=== PATIENT | female | born 2000 | race Caucasian/White ===

== ENCOUNTER 2021-08-21 08:35 | Inpatient (IN) | payer OTHER ==
[2021-08-21 09:11] VITALS: BMI 28.9
[2021-08-21] MEDS ORDERED: hydrALAZINE 20 MG/ML VIAL SLOW IVP PRN ×2 (09:53→09:59)
[2021-08-21] MEDS ORDERED: Famotidine/PF 20 mg/2ml Vial SLOW IVP PRN (09:59)
[2021-08-21] MEDS ORDERED: Butorphanol Tartrate 1 MG/ML VIAL SLOW IVP PRN (09:59)
[2021-08-21] MEDS ORDERED: Bicitra 30 ML UDCUP PO PRN (09:59)
[2021-08-21] MEDS ORDERED: Ondansetron PF 4 MG/2 ML Vial IVP PRN ×2 (09:59→17:09)
[2021-08-21] MEDS ORDERED: Promethazine HCl 25 MG/ML VIAL IM PRN ×2 (09:59→17:09)
[2021-08-21] MEDS ORDERED: Lactated Ringer's 1,000 ML IV SCH ×2 (10:00)
[2021-08-21] MEDS ORDERED: CEFAZOLIN 2 GM in Premix Bag 1 BAG IVPB SCH (10:00)
[2021-08-21 10:41] LABS: Hemoglobin 12.4 g/dL (12.0-15.5); Mean Corpuscular HGB CONC 33.7 g/dL (32.0-36.0); Mean Corpuscular Hemoglobin 27.7 pg (27.0-33.0); Mean Corpuscular Volume 82.3 fl (81.6-98.3); Mean Platelet Volume 11.7 fl (7.4-10.4); Platelet Count 277 10x3/uL (150-450); RBC Distribution Width 12.8 % (11.5-14.5); Red Blood Cell (RBC) Count 4.47 10x6/uL (3.90-5.03); White Blood Cell (WBC) Count 15.8 10x3/uL (3.5-10.5)
[2021-08-21] MEDS ORDERED: Ondansetron PF 4 MG/2 ML Vial ONE (11:02)
[2021-08-21] MEDS ORDERED: Dexamethasone 4 mg/ml Vial ONE (11:02)
[2021-08-21] MEDS ORDERED: Oxytocin 10 UNITS/ML VIAL ONE (11:02)
[2021-08-21] MEDS ORDERED: Morphine PF 10 MG/10 ML VIAL ONE (11:02)
[2021-08-21] MEDS ORDERED: PHENYLEPHRINE-NS 100 MCG/ML 10 ML SYRINGE ONE (11:02)
[2021-08-21 11:12] LABS: Hep B Surf Ag Non-Reactive S/CO (NonReactive); Syphilis Antibody Nonreactive (Nonreactive); Syphilis Antibody Index 0.06 S/CO (<1.00 Non-Reactive)
[2021-08-21] MEDS ORDERED: Lidocaine 1% (PF) 30 ML VIAL ONE (11:18)
[2021-08-21 11:19] LABS: HBSAg Index 0.22 S/CO (0-0.99)
[2021-08-21 12:35] LABS: SARS-CoV-2 NAA Rapid Test Not Detected (NotDetected)
[2021-08-21] MEDS ORDERED: Misoprostol 200 MCG TAB PR PRN (12:48)
[2021-08-21] MEDS ORDERED: Boostrix 0.5 ML (Tdap) VIAL IM ONE (12:48)
[2021-08-21] MEDS ORDERED: Simethicone Chewable 80 MG TAB PO PRN (12:48)
[2021-08-21] MEDS ORDERED: Methylergonovine 0.2 MG/ML VIAL IM PRN (12:48)
[2021-08-21] MEDS ORDERED: Measles/Mumps/Rubella 10 MCG/0.5 ML VIAL SC ONE (12:48)
[2021-08-21] MEDS ORDERED: Acetaminophen/Codeine 30-300mg Tablet PO PRN (12:48)
[2021-08-21] MEDS ORDERED: Lanolin Ointment 7 GM TUBE TOP PRN (12:48)
[2021-08-21] MEDS ORDERED: Varicella virus, LIVE 0.5 ML VIAL SC ONE (12:48)
[2021-08-21] MEDS ORDERED: HYDROcodone/Acetaminophen 5/325 mg Tablet PO PRN ×2 (12:48)
[2021-08-21] MEDS ORDERED: Bisacodyl 10 MG SUPP PR PRN (12:48)
[2021-08-21] MEDS ORDERED: NS w/ Oxytocin 30 units 500 ML IV SCH (13:00)
[2021-08-21 13:32] LABS: RapidComm Collect By CBN
[2021-08-21 13:33] LABS: RapidComm Collect By CBN; pH (Cord, venous) 7.275 (7.250-7.350)
[2021-08-21] MEDS ORDERED: Ibuprofen 800 MG TAB PO SCH (14:00)
[2021-08-21] MEDS ORDERED: Meperidine HCl/PF 25 MG/ML VIAL SLOW IVP PRN (17:09)
[2021-08-21] MEDS ORDERED: Hydrocerin (Eucerin) Cream 120 gm Jar TOP PRN (17:09)
[2021-08-21] MEDS ORDERED: Fentanyl 100 MCG/2 ML VIAL SLOW IVP PRN (17:09)
[2021-08-21] MEDS ORDERED: Naloxone HCl 0.4 mg/ml Vial IVP PRN ×2 (17:09)
[2021-08-21] MEDS ORDERED: Ondansetron HCl/PF 4 MG/2 ML Vial IVP PRN (17:09)
[2021-08-21] MEDS ORDERED: Ketorolac Tromethamine 30 MG/ML VIAL IVP PRN (17:09)
[2021-08-21] MEDS ORDERED: Promethazine HCl 25 MG SUPP PR PRN (17:09)
[2021-08-21] MEDS ORDERED: Naloxone HCl 0.4 mg/ml Vial IV PRN (17:09)
[2021-08-21] MEDS ORDERED: diphenhydrAMINE 50 MG/ML VIAL IVP PRN (17:09)
[2021-08-21] MEDS ORDERED: Ketorolac Tromethamine 30 MG/ML VIAL IVP SCH (17:15)
[2021-08-21] MEDS ORDERED: Communication Order-Pharmacy FS SCH (17:15)
[2021-08-22 05:38] LABS: Hemoglobin 10.7 g/dL (12.0-15.5); Mean Corpuscular HGB CONC 32.8 g/dL (32.0-36.0); Mean Corpuscular Hemoglobin 27.4 pg (27.0-33.0); Mean Corpuscular Volume 83.4 fl (81.6-98.3); Mean Platelet Volume 11.6 fl (7.4-10.4); Platelet Count 185 10x3/uL (150-450); RBC Distribution Width 12.9 % (11.5-14.5); Red Blood Cell (RBC) Count 3.91 10x6/uL (3.90-5.03); White Blood Cell (WBC) Count 14.2 10x3/uL (3.5-10.5)
[2021-08-22] MEDS: Docusate Calcium (SURFAK) 240 MG CAP PO SCH ×3 (07:28→22:41)
[2021-08-22] MEDS: Ferrous Sulfate 325 MG TAB PO SCH ×2 (07:28→22:41)
[2021-08-22] MEDS: Prenatal Vitamin 1 TAB PO SCH (08:49)
[2021-08-22] MEDS: Acetaminophen 325 MG TAB PO PRN ×2 (13:12→17:19)
[2021-08-22] MEDS ORDERED: HYDROcodone/Acetaminophen 5/325 mg Tablet PO PRN (13:23)
[2021-08-22] MEDS: HYDROcodone/Acetaminophen 5/325 mg Tablet PO PRN ×2 (13:30→17:19)
[2021-08-22] MEDS: Ibuprofen 800 MG TAB PO SCH ×3 (13:47→22:40)
[2021-08-23] MEDS: Ibuprofen 800 MG TAB PO SCH ×4 (06:52→17:38)
[2021-08-23] MEDS: HYDROcodone/Acetaminophen 5/325 mg Tablet PO PRN ×3 (08:56→21:31)
[2021-08-23] MEDS: Docusate Calcium (SURFAK) 240 MG CAP PO SCH ×2 (08:57→21:32)
[2021-08-23] MEDS: Prenatal Vitamin 1 TAB PO SCH (08:57)
[2021-08-23] MEDS: Ferrous Sulfate 325 MG TAB PO SCH (08:57)
[2021-08-24] MEDS: Ibuprofen 800 MG TAB PO SCH ×3 (00:55→13:51)
[2021-08-24] MEDS: Ferrous Sulfate 325 MG TAB PO SCH ×2 (00:56→09:52)
[2021-08-24] MEDS: HYDROcodone/Acetaminophen 5/325 mg Tablet PO PRN ×2 (00:58→13:57)
[2021-08-24 08:13] VITALS: BP 106/55; TEMP 97.9
[2021-08-24] MEDS: Prenatal Vitamin 1 TAB PO SCH (09:50)
[2021-08-24] MEDS: Docusate Calcium (SURFAK) 240 MG CAP PO SCH (09:50)
== END 2021-08-24 18:50 | disposition home or self-care (01) | DRG 786 ==
LOC: CSHLD/OP 08:35 → CSHLD 11:00 → CSHPP 15:25
PROVIDERS: ADMIT Obstetrics & Gynecology; ATTEND Obstetrics & Gynecology
PROC: 10D00Z1 Extraction of Products of Conception, Low, Open Approach (ICD-10-PCS; principal; 2021-08-21)
DX: O30.043 Twin pregnancy, dichorionic/diamniotic, third trimester (principal); O60.14X0 Preterm labor third trimester with preterm delivery third trimester, not applicable or unspecified; O45.93 Premature separation of placenta, unspecified, third trimester; O34.211 Maternal care for low transverse scar from previous cesarean delivery; O99.62 Diseases of the digestive system complicating childbirth; O76 Abnormality in fetal heart rate and rhythm complicating labor and delivery; Z20.822 Contact with and (suspected) exposure to COVID-19; K66.0 Peritoneal adhesions (postprocedural) (postinfection); Z3A.33 33 weeks gestation of pregnancy; Z37.2 Twins, both liveborn
CPT/HCPCS: 36415; 51702; 82805; 85027; 86780; 86850; 86900; 86901; 87340; 88307; 99285; J0690; J1100; J2001; J2274; J2405; J2590; U0002

== ENCOUNTER 2021-10-21 23:28 | Inpatient (IN) | payer OTHER ==
[2021-10-22 00:21] LABS: #Basophils 0.1 10x3/uL (0.0-0.2); #Eosinphils 0.2 10x3/uL (0.0-0.5); #Monocytes 0.4 10x3/uL (0.0-1.1); #Neutrophils 3.2 10x3/uL (1.5-8.4); %Basophils 1.1 % (0.0-2.0); %Eosinophils 3.2 % (0.0-6.0); %Lymphocytes 31.3 % (18.0-47.0); %Monocytes 7.8 % (0.0-10.0); %Neutrophils 56.4 % (40.0-75.0); Hemoglobin 13.4 g/dL (12.0-15.5); Mean Corpuscular HGB CONC 31.3 g/dL (32.0-36.0); Mean Corpuscular Hemoglobin 25.7 pg (27.0-33.0); Mean Platelet Volume 10.9 fl (7.4-10.4); Platelet Count 307 10x3/uL (150-450); RBC Distribution Width 14.4 % (11.5-14.5); Red Blood Cell (RBC) Count 5.22 10x6/uL (3.90-5.03); White Blood Cell (WBC) Count 5.7 10x3/uL (3.5-10.5)
[2021-10-22] MEDS ORDERED: Famotidine/PF 20 mg/2ml Vial ONE ×3 (00:28→12:54)
[2021-10-22] MEDS ORDERED: Pantoprazole 40 MG VIAL ONE (00:28)
[2021-10-22 00:32] LABS: ALT (SGPT) 873 U/L (8-55); AST (SGOT) 765 U/L (5-34); Albumin 4.2 g/dL (3.5-5.0); Alkaline Phosphatase 517 U/L (40-110); Anion Gap 14 mmol/L (10-20); BUN (Urea Nitrogen) 11 mg/dL (7.0-18.7); Bilirubin, Total 0.9 mg/dL (0.2-1.2); Calc. Creatinine Clearance 0 mL/min (70-130); Calcium 9.3 mg/dL (7.8-10.44); Carbon Dioxide 22 mmol/L (22-29); Chloride 107 mmol/L (98-107); Globulin 3.1 g/dL (2.4-3.5); Glucose 110 mg/dL (70-105); Lipase 59 U/L (8-78); Potassium 3.4 mmol/L (3.5-5.1); Protein, Total 7.3 g/dL (6.0-8.3); Sodium 140 mmol/L (136-145)
[2021-10-22] MEDS ORDERED: Mag-Al Plus 1200 MG/1200 MG/120 MG/30 ML UDCUP ONE (00:34)
[2021-10-22 00:48] LABS: Bilirubin 1+ (Negative); Blood, Urine Negative (Negative); Clarity Clear (Clear); Glucose, Urine (Dipstick) Normal (Negative); Ketone, Urine 5 mg/dL (Negative); Leukocyte Negative (Negative); Nitrite Negative (Negative); Protein, Urine (Dipstick) 30 mg/dl (Neg-Trace); Specific Gravity, Urine 1.025 (1.002-1.036)
[2021-10-22 00:49] LABS: Pregnancy Test - Urine (BHCG) Negative (Negative); Pregu Control Background? CLEAR/WHITE (CLR/WHITE); Pregu Control Bar Appear? YES (CONTROL BAR); Specific Gravity 1.025 (1.002-1.036)
[2021-10-22 01:03] LABS: Bacteria/HPF 2+ HPF (None Seen); Mucous/LPF 4+ LPF (<2+); RBC/HPF 0-3 HPF (0-3); WBC/HPF 0-3 HPF (0-3)
[2021-10-22] MEDS ORDERED: Morphine 4 MG/ML VIAL ONE ×2 (01:27→05:14)
[2021-10-22] MEDS ORDERED: Piperacillin/Tazobactam 3.375 GM VIAL ONE (01:27)
[2021-10-22 02:30] LABS: SARS-CoV-2 NAA Rapid Test Not Detected (NotDetected)
[2021-10-22] MEDS ORDERED: Calcium Carbonate 500 MG ChewTAB PO PRN (10:06)
[2021-10-22] MEDS ORDERED: Mag-Al 1200 mg/1200 mg/30 ML UDCUP PO PRN (10:06)
[2021-10-22] MEDS ORDERED: Ondansetron PF 4 MG/2 ML Vial IVP PRN (10:06)
[2021-10-22] MEDS ORDERED: Dextrose 5% in Water 1,000 ML IV PRN (10:06)
[2021-10-22] MEDS ORDERED: Promethazine HCl 25 MG/ML VIAL IM PRN (10:06)
[2021-10-22] MEDS ORDERED: Dextrose 50% Abboject 50 ML SYRINGE SLOW IVP PRN (10:06)
[2021-10-22] MEDS ORDERED: hydrALAZINE 20 MG/ML VIAL SLOW IVP PRN (10:06)
[2021-10-22] MEDS ORDERED: SUGAMMADEX SODIUM 200 MG/2 ML VIAL ONE ×2 (12:46→12:54)
[2021-10-22] MEDS ORDERED: Lidocaine 2% PF 5 ML VIAL ONE (12:55)
[2021-10-22] MEDS ORDERED: PROPOFOL 20 ML ONE (12:55)
[2021-10-22] MEDS ORDERED: Fentanyl 100 MCG/2 ML VIAL ONE ×2 (12:55→15:48)
[2021-10-22] MEDS ORDERED: Rocuronium Bromide 10 MG/ML (10ML VIAL) ONE (12:55)
[2021-10-22] MEDS ORDERED: EPINEPHrine 1 MG/ML AMP ONE ×2 (13:03→14:09)
[2021-10-22] MEDS ORDERED: Bupivacaine 0.25% HCL 30 ML VIAL ONE ×2 (13:03→14:09)
[2021-10-22] MEDS ORDERED: Iopamidol 15 ML ONE ×2 (13:04→14:19)
[2021-10-22 13:11] LABS: HBCM Index 0.07 S/CO (0-0.79); HBSAg Index 0.22 S/CO (0-0.99); Hep A IgM AB Non-Reactive (NonReactive); Hep A IgM S/CO 0.13 S/CO (0-0.79); Hep B Surf Ag Non-Reactive S/CO (NonReactive); Hep C IgG Ab Non-Reactive (NonReactive); Hep C Index 0.06 S/CO (0-0.79); Hepatitis B Core IgM Abs Non-Reactive (NonReactive)
[2021-10-22] MEDS ORDERED: Piperacillin/Tazobactam 3.375 GM in Sodium Chloride 0.9% 100 ML IVPB SCH ×3 (13:30→19:00)
[2021-10-22] MEDS ORDERED: Dexamethasone 20 MG/5 ML VIAL ONE (13:52)
[2021-10-22] MEDS ORDERED: Ketorolac Tromethamine 30 MG/ML VIAL ONE (13:52)
[2021-10-22] MEDS ORDERED: Ondansetron PF 4 MG/2 ML Vial ONE (13:52)
[2021-10-22] MEDS ORDERED: Metoclopramide HCl 10 MG/2 ML VIAL ONE (13:52)
[2021-10-22] MEDS ORDERED: PHENYLEPHRINE-NS 100 MCG/ML 10 ML SYRINGE ONE (13:54)
[2021-10-22] MEDS ORDERED: Iopamidol-M 300 61% 15 ML VIAL ONE (14:09)
[2021-10-22] MEDS: D5 1/2 NS w/20 mEq KCL 1,000 ML IV SCH (19:57)
[2021-10-22] MEDS: Ketorolac Tromethamine 30 MG/ML VIAL IVP SCH ×2 (19:57→23:35)
[2021-10-22] MEDS ORDERED: D5 1/2 NS w/20 mEq KCL 1,000 ML ONE (20:40)
[2021-10-22] MEDS: HYDROcodone/Acetaminophen 10/325 mg Tablet PO PRN (21:07)
[2021-10-22] MEDS: Famotidine 20 MG TAB PO SCH (21:09)
[2021-10-22] MEDS: Famotidine/PF 20 mg/2ml Vial SLOW IVP SCH (22:36)
[2021-10-22] MEDS: Piperacillin/Tazobactam 3.375 GM in Sodium Chloride 0.9% 100 ML IVPB SCH (23:36)
[2021-10-23 00:07] VITALS: BMI 23.6
[2021-10-23] MEDS: Ketorolac Tromethamine 30 MG/ML VIAL IVP SCH ×3 (04:59→18:04)
[2021-10-23] MEDS: D5 1/2 NS w/20 mEq KCL 1,000 ML IV SCH ×3 (04:59→20:30)
[2021-10-23] MEDS: HYDROcodone/Acetaminophen 10/325 mg Tablet PO PRN ×2 (05:00→22:25)
[2021-10-23 05:11] LABS: #Monocytes 0.5 10x3/uL (0.0-1.1); #Neutrophils 6.1 10x3/uL (1.5-8.4); %Basophils 0.5 % (0.0-2.0); %Eosinophils 0.1 % (0.0-6.0); %Lymphocytes 17.1 % (18.0-47.0); %Monocytes 6.5 % (0.0-10.0); %Neutrophils 75.4 % (40.0-75.0); Hemoglobin 12.2 g/dL (12.0-15.5); Mean Corpuscular HGB CONC 32.5 g/dL (32.0-36.0); Mean Corpuscular Hemoglobin 26.5 pg (27.0-33.0); Mean Corpuscular Volume 81.3 fl (81.6-98.3); Mean Platelet Volume 11.7 fl (7.4-10.4); Platelet Count 268 10x3/uL (150-450); RBC Distribution Width 14.6 % (11.5-14.5); Red Blood Cell (RBC) Count 4.61 10x6/uL (3.90-5.03); White Blood Cell (WBC) Count 8.1 10x3/uL (3.5-10.5)
[2021-10-23 05:34] LABS: ALT (SGPT) 463 U/L (8-55); AST (SGOT) 130 U/L (5-34); Albumin 3.5 g/dL (3.5-5.0); Alkaline Phosphatase 369 U/L (40-110); Anion Gap 13 mmol/L (10-20); BUN (Urea Nitrogen) 8 mg/dL (7.0-18.7); Bilirubin, Total 0.6 mg/dL (0.2-1.2); Calc. Creatinine Clearance 99 mL/min (70-130); Calcium 8.8 mg/dL (7.8-10.44); Carbon Dioxide 23 mmol/L (22-29); Chloride 108 mmol/L (98-107); Globulin 2.6 g/dL (2.4-3.5); Glucose 88 mg/dL (70-105); Potassium 4.1 mmol/L (3.5-5.1); Protein, Total 6.1 g/dL (6.0-8.3); Sodium 140 mmol/L (136-145)
[2021-10-23] MEDS: Famotidine/PF 20 mg/2ml Vial SLOW IVP SCH ×2 (08:28→22:12)
[2021-10-23] MEDS: Piperacillin/Tazobactam 3.375 GM in Sodium Chloride 0.9% 100 ML IVPB SCH ×2 (08:28→18:04)
[2021-10-23] MEDS: Famotidine 20 MG TAB PO SCH ×2 (08:37→20:42)
[2021-10-23] MEDS: Morphine 4 MG/ML VIAL SLOW IVP PRN (08:37)
[2021-10-23] MEDS ORDERED: Iopamidol 30 ML ONE (13:12)
[2021-10-23] MEDS ORDERED: Indomethacin 50 MG SUPP ONE ×2 (13:12→15:44)
[2021-10-23] MEDS ORDERED: PROPOFOL 20 ML ONE (14:29)
[2021-10-23] MEDS ORDERED: Fentanyl 100 MCG/2 ML VIAL ONE (14:29)
[2021-10-23] MEDS ORDERED: Midazolam HCl 2 mg/2 ml Vial ONE (14:29)
[2021-10-23] MEDS ORDERED: Dexamethasone 4 mg/ml Vial ONE (14:36)
[2021-10-23] MEDS ORDERED: Rocuronium Bromide 10 MG/ML (10ML VIAL) ONE (14:36)
[2021-10-23] MEDS ORDERED: Ondansetron PF 4 MG/2 ML Vial ONE (14:36)
[2021-10-23] MEDS ORDERED: Glycopyrrolate 0.2 MG/ML 5 ML SYRINGE ONE (15:49)
[2021-10-24] MEDS: Piperacillin/Tazobactam 3.375 GM in Sodium Chloride 0.9% 100 ML IVPB SCH ×4 (00:05→23:37)
[2021-10-24] MEDS: Ketorolac Tromethamine 30 MG/ML VIAL IVP SCH ×5 (00:05→23:34)
[2021-10-24 04:35] LABS: #Monocytes 0.5 10x3/uL (0.0-1.1); #Neutrophils 5.8 10x3/uL (1.5-8.4); %Basophils 0.5 % (0.0-2.0); %Eosinophils 0.1 % (0.0-6.0); %Lymphocytes 17.7 % (18.0-47.0); %Monocytes 6.4 % (0.0-10.0); %Neutrophils 74.9 % (40.0-75.0); Mean Corpuscular HGB CONC 31.7 g/dL (32.0-36.0); Mean Corpuscular Hemoglobin 25.9 pg (27.0-33.0); Mean Corpuscular Volume 81.8 fl (81.6-98.3); Mean Platelet Volume 11.4 fl (7.4-10.4); Platelet Count 204 10x3/uL (150-450); RBC Distribution Width 14.8 % (11.5-14.5); Red Blood Cell (RBC) Count 4.24 10x6/uL (3.90-5.03); White Blood Cell (WBC) Count 7.8 10x3/uL (3.5-10.5)
[2021-10-24 04:53] LABS: ALT (SGPT) 309 U/L (8-55); AST (SGOT) 68 U/L (5-34); Albumin 3.2 g/dL (3.5-5.0); Alkaline Phosphatase 287 U/L (40-110); Anion Gap 15 mmol/L (10-20); BUN (Urea Nitrogen) 7 mg/dL (7.0-18.7); Bilirubin, Total 0.5 mg/dL (0.2-1.2); Calc. Creatinine Clearance 114 mL/min (70-130); Calcium 8.3 mg/dL (7.8-10.44); Carbon Dioxide 21 mmol/L (22-29); Chloride 107 mmol/L (98-107); Globulin 2.2 g/dL (2.4-3.5); Glucose 68 mg/dL (70-105); Potassium 3.9 mmol/L (3.5-5.1); Protein, Total 5.4 g/dL (6.0-8.3); Sodium 139 mmol/L (136-145)
[2021-10-24] MEDS: D5 1/2 NS w/20 mEq KCL 1,000 ML IV SCH ×2 (05:40→14:12)
[2021-10-24] MEDS: Morphine 4 MG/ML VIAL SLOW IVP PRN ×3 (10:09→22:45)
[2021-10-24] MEDS: Famotidine 20 MG TAB PO SCH ×2 (10:11→21:18)
[2021-10-24] MEDS: Famotidine/PF 20 mg/2ml Vial SLOW IVP SCH ×2 (10:39→22:44)
[2021-10-25] MEDS: D5 1/2 NS w/20 mEq KCL 1,000 ML IV SCH ×3 (00:13→14:37)
[2021-10-25 04:16] LABS: #Eosinphils 0.1 10x3/uL (0.0-0.5); #Monocytes 0.4 10x3/uL (0.0-1.1); #Neutrophils 3.1 10x3/uL (1.5-8.4); %Basophils 0.4 % (0.0-2.0); %Eosinophils 1.8 % (0.0-6.0); %Lymphocytes 36.2 % (18.0-47.0); %Monocytes 7.4 % (0.0-10.0); Hemoglobin 10.3 g/dL (12.0-15.5); Mean Corpuscular HGB CONC 30.7 g/dL (32.0-36.0); Mean Corpuscular Hemoglobin 25.8 pg (27.0-33.0); Mean Corpuscular Volume 84.2 fl (81.6-98.3); Platelet Count 159 10x3/uL (150-450); RBC Distribution Width 14.9 % (11.5-14.5); Red Blood Cell (RBC) Count 3.99 10x6/uL (3.90-5.03); White Blood Cell (WBC) Count 5.7 10x3/uL (3.5-10.5)
[2021-10-25 04:18] LABS: ALT (SGPT) 219 U/L (8-55); AST (SGOT) 38 U/L (5-34); Albumin 3.2 g/dL (3.5-5.0); Alkaline Phosphatase 243 U/L (40-110); Bilirubin, Direct 0.2 mg/dL (0.1-0.3); Bilirubin, Total 0.4 mg/dL (0.2-1.2); Lipase 100 U/L (8-78); Protein, Total 5.2 g/dL (6.0-8.3)
[2021-10-25] MEDS: Ketorolac Tromethamine 30 MG/ML VIAL IVP SCH ×3 (06:43→18:24)
[2021-10-25] MEDS: Piperacillin/Tazobactam 3.375 GM in Sodium Chloride 0.9% 100 ML IVPB SCH ×2 (09:05→15:59)
[2021-10-25] MEDS: Famotidine/PF 20 mg/2ml Vial SLOW IVP SCH (09:12)
[2021-10-25] MEDS: Famotidine 20 MG TAB PO SCH (09:12)
[2021-10-25] MEDS ORDERED: Indomethacin 50 MG SUPP ONE (09:35)
[2021-10-25] MEDS ORDERED: Rocuronium Bromide 10 MG/ML (10ML VIAL) ONE (09:51)
[2021-10-25] MEDS ORDERED: Ondansetron PF 4 MG/2 ML Vial ONE (09:51)
[2021-10-25] MEDS ORDERED: Fentanyl 100 MCG/2 ML VIAL ONE (09:51)
[2021-10-25] MEDS ORDERED: Dexamethasone 4 mg/ml Vial ONE (09:51)
[2021-10-25] MEDS ORDERED: Glycopyrrolate 0.2 MG/ML 5 ML SYRINGE ONE (09:51)
[2021-10-25] MEDS ORDERED: PROPOFOL 20 ML ONE (09:51)
[2021-10-25] MEDS ORDERED: Lidocaine 1% PF 5 ML VIAL ONE (09:52)
[2021-10-25] MEDS ORDERED: Iopamidol 20 ML FS ONE (09:55)
[2021-10-25] MEDS ORDERED: Midazolam HCl 2 mg/2 ml Vial ONE (10:08)
[2021-10-25] MEDS ORDERED: ePHEDrine Sulfate 50 MG/10 ML VIAL ONE (10:41)
[2021-10-26] MEDS: D5 1/2 NS w/20 mEq KCL 1,000 ML IV SCH ×3 (00:21→17:56)
[2021-10-26] MEDS: Famotidine/PF 20 mg/2ml Vial SLOW IVP SCH ×2 (00:22→10:30)
[2021-10-26] MEDS: Ketorolac Tromethamine 30 MG/ML VIAL IVP SCH ×3 (00:47→12:46)
[2021-10-26] MEDS: Famotidine 20 MG TAB PO SCH ×2 (00:47→08:33)
[2021-10-26] MEDS: Piperacillin/Tazobactam 3.375 GM in Sodium Chloride 0.9% 100 ML IVPB SCH ×3 (00:48→17:56)
[2021-10-26 08:57] LABS: ALT (SGPT) 169 U/L (8-55); AST (SGOT) 21 U/L (5-34); Albumin 3.5 g/dL (3.5-5.0); Alkaline Phosphatase 246 U/L (40-110); Bilirubin, Direct 0.2 mg/dL (0.1-0.3); Bilirubin, Total 0.4 mg/dL (0.2-1.2); Protein, Total 5.8 g/dL (6.0-8.3)
[2021-10-26 16:40] VITALS: BP 133/81; TEMP 97.4
== END 2021-10-26 20:10 | disposition short-term general hospital (02) | DRG 419 ==
LOC: CSHERS 23:28 → INTOOBSV 10-22 04:15 → CSHERHOLD 10-22 04:15 → CSHTELE 10-22 15:51 → OBSVTOIN 10-23 11:36
PROVIDERS: ADMIT Surgery; ATTEND Surgery
PROC: 0FT44ZZ Resection of Gallbladder, Percutaneous Endoscopic Approach (ICD-10-PCS; principal; 2021-10-22)
PROC: BF131ZZ Fluoroscopy of Gallbladder and Bile Ducts using Low Osmolar Contrast (ICD-10-PCS; 2021-10-22)
PROC: 0FJD8ZZ Inspection of Pancreatic Duct, Via Natural or Artificial Opening Endoscopic (ICD-10-PCS; 2021-10-23)
PROC: 0FJD8ZZ Inspection of Pancreatic Duct, Via Natural or Artificial Opening Endoscopic (ICD-10-PCS; 2021-10-25)
DX: K80.42 Calculus of bile duct with acute cholecystitis without obstruction (principal); Z20.822 Contact with and (suspected) exposure to COVID-19; Z90.89 Acquired absence of other organs
CPT/HCPCS: 36415; 47531; 74181; 74330; 76705; 80053; 80074; 80076; 81003; 81015; 81025; 83690; 85025; 88304; 93005; 96365; 96375; 96376; C1713; C9113; G0378; J0171; J1100; J1610; J1885; J2001; J2250; J2270; J2405; J2543; J2704; J2765; J3010; J3480; J3490; Q9966; Q9967; S0020; S0028; U0002